=== PATIENT | male | born 1950 | race Two or more races ===

== ENCOUNTER 2024-10-12 11:52 | Emergency (ER) | payer OTHER ==
[~2024-10-12] VITALS: Ht 170.2 cm; Wt 76.2 kg
[2024-10-12] MEDS ORDERED: PRILOSEC OTC20 MG (12:34)
[2024-10-12] MEDS ORDERED: ARBLI10 MG/1 ML PO (12:34)
[2024-10-12] MEDS ORDERED: LIPOFEN50 MG PO (12:34)
[2024-10-12] MEDS ORDERED: LIPITOR20 MG (12:34)
[2024-10-12] MEDS ORDERED: KETOROLAC TROMETHAMINE 30 MG VIAL IV ONE (14:45)
[2024-10-12] MEDS ORDERED: KETOROLAC TROMETHAMINE 30 MG VIAL ONE (14:46)
[2024-10-12 15:33] LABS: BASO % 1.2 % (0.1-1.2); EOS # 0.13 (0.04-0.54); EOS % 1.2 % (0.7-7.0); LYMPH # 1.73 (1.18-3.74); LYMPH % 15.5 % (19.3-53.1); MEAN PLATELET VOLUME 9.90 fl (9.4-12.4); MONO # 0.97 (0.24-0.82); MONO % 8.7 % (4.7-12.5); NEUT # 8.15 (1.56-6.13); NEUT % 73.1 % (34.0-71.1); RED CELL DISTRIBUTION WIDTH 13.2 % (11.6-14.4)
[2024-10-12 15:49] LABS: ALT/SGPT 24.0 U/L (12-78); AST/SGOT 11.0 U/L (15-37); BILIRUBIN TOTAL 0.57 mg/dL (0.3-1.2); BUN CREA RATIO 19.0 (7.0-25.0); CREATININE SERUM 1.24 mg/dL (0.70-1.30); GFR 56.83; GLOBULINA 3.0 G/DL (2.4-3.5); GLUCOSE FASTING 122.0 mg/dL (65-100); OSMOLALITY SERUM 292.0 MOSM/KG (275-295)
[2024-10-12 16:56] LABS: URINE APPEARANCE Clear; URINE BILIRRUBIN Negative (NEGATIVE); URINE BLOOD Negative; URINE COLOR Dark Yellow; URINE GLUCOSE Negative (NEGATIVE); URINE KETONE Trace (NEGATIVE); URINE LEUKOCYTE Negative; URINE NITRATE Negative; URINE PROTEIN Negative (NEGATIVE); URINE UROBILINOGEN 1.0 E.U./dl
[2024-10-12 16:58] LABS: URINE BACTERIA 32.3 uL (0.0-1933); URINE EPITHELIAL CELLS 8.4 uL (0.0-38.8); URINE RBC 4.6 uL (0.0-20.8)
[2024-10-12 17:03] LABS: URINE CAST 0.87 uL (0.0-1.40); URINE WBC 1.6 uL (0.0-23.2)
[2024-10-12] MEDS ORDERED: DICLOFENAC SODI50 MG PO (18:12)
[2024-10-12] MEDS ORDERED: NORFLEX100MG PO (18:12)
== END 2024-10-12 18:44 | disposition home or self-care (01) ==
LOC: ER 11:52
PROVIDERS: Emergency Medicine
DX: M51.369 Other intervertebral disc degeneration, lumbar region without mention of lumbar back pain or lower extremity pain (principal); M54.9 Dorsalgia, unspecified; R10.9 Unspecified abdominal pain; I10 Essential (primary) hypertension; Z88.0 Allergy status to penicillin
CPT/HCPCS: 36415; 74176; 96365; 99284; J1885